=== PATIENT | female | born 1960 | race Caucasian/White ===

== ENCOUNTER 2017-07-15 17:12 | Inpatient (IN) | payer MEDICARE, MEDICAID ==
[~2017-07-15] VITALS: Ht 152.4 cm; Wt 46.4 kg
[~2017-07-15 17:12] MED LIST: HYDR200T PO; LEVO200I5 PO
[2017-07-15 18:57] LABS: Basophils # (auto) 0 uL; Eosinophils # (auto) 0.1 uL; Mean Corpuscular Hgb Conc. 33.8 g/dL (32.0-36.0); Nucleated Red Blood Cells % 0.1 %; Red Cell Distribution Width 13.5 % (11.8-14.3)
[2017-07-15 18:59] LABS: Basophils % (auto) 0.5 % (0.0-2.0); Eosinophils % (auto) 1.3 % (0.0-7.0); Hematocrit 36.2 % (36.0-46.0); Hemoglobin 12.2 g/dL (12.2-16.2); Lymphocytes # (auto) 1.4 uL; Lymphocytes % (auto) 17.4 % (10.0-50.0); Mean Corpuscular Hemoglobin 34.2 pg (28.0-32.0); Mean Corpuscular Volume 101.1 fL (80.0-100.0); Monocytes # (auto) 1.1 uL; Monocytes % (auto) 13.8 % (0.0-12.0); Neutrophils # (auto) 5.3 uL; Platelet Count (auto) 316 10^3/uL (140-450); Red Blood Cells 3.58 10^6/uL (4.0-5.20); White Blood Cell 7.8 10^3/uL (4.4-10.8)
[2017-07-15 19:13] LABS: Chloride 94 mmol/L (98-107); Potassium 4.4 mmol/L (3.5-5.1); Sodium 128 mmol/L (136-145)
[2017-07-15 19:17] LABS: Alanine Aminotransferase 22 U/L (13-56); Albumin 3.5 g/dL (3.4-5.0); Anion Gap 10 (5-15); Aspartate Aminotransferase 28 U/L (15-37); BUN/Creatinine Ratio 17.7; Blood Urea Nitrogen 41 mg/dL (7-18); Calcium 9.2 mg/dL (8.5-10.1); Carbon Dioxide 24 mmol/L (21-32); GFR African American 28 mL/min; GFR Non-African American 23 mL/min; Glucose 88 mg/dL (74-106)
[2017-07-15 19:23] LABS: Alkaline Phosphatase 90 U/L (45-117); Bilirubin, Total 0.5 mg/dL (0.2-1.0); Total Protein 7.9 g/dL (6.4-8.2)
[2017-07-16] MEDS ORDERED: FAMOTIDINE (10MG/ML) 2ML VL IV ONE (02:15)
[2017-07-16] MEDS ORDERED: SODIUM CHLORIDE 0.9% 1,000 ML IV ONE ×2 (02:15→12:45)
[2017-07-16 02:34] LABS: Basophils # (auto) 0.1 uL; Basophils % (auto) 2.4 % (0.0-2.0); Eosinophils # (auto) 0.1 uL; Eosinophils % (auto) 2.4 % (0.0-7.0); Hematocrit 39.6 % (36.0-46.0); Hemoglobin 13.1 g/dL (12.2-16.2); Lymphocytes # (auto) 1.3 uL; Lymphocytes % (auto) 22.7 % (10.0-50.0); Mean Corpuscular Hemoglobin 32.7 pg (28.0-32.0); Mean Corpuscular Volume 99.2 fL (80.0-100.0); Monocytes # (auto) 0.6 uL; Monocytes % (auto) 10.3 % (0.0-12.0); Neutrophils # (auto) 3.5 uL; Neutrophils % (auto) 62.2 % (37.0-80.0); Platelet Count (auto) 259 10^3/uL (140-450); Red Blood Cells 3.99 10^6/uL (4.0-5.20); Red Cell Distribution Width 13.7 % (11.8-14.3); White Blood Cell 5.6 10^3/uL (4.4-10.8)
[2017-07-16 02:48] LABS: Partial Thromboplastin Time 27.1 sec (23.78-33.04); Prothrombin Time 10.7 sec (9.27-12.13)
[2017-07-16 02:49] LABS: Amylase 70 U/L (25-115); Lipase 158 U/L (73-393)
[2017-07-16 03:55] LABS: Urine Bacteria FEW /hpf (None Seen); Urine Blood Negative /uL (Negative); Urine Hyaline Cast MANY /lpf (0 - 2); Urine Specific Gravity 1.014 (1.001-1.035); Urine WBC 2 /hpf (0 - 5)
[2017-07-16] MEDS ORDERED: ALLOPURINOL 300 MG TAB PO ONE (05:15)
[2017-07-16] MEDS ORDERED: KETOROLAC TROMETH 30 MG/ML 1ML VIAL IV ONE (05:15)
[2017-07-16] MEDS ORDERED: COLCHICINE 0.6 MG TAB PO ONE (05:15)
[2017-07-16] MEDS ORDERED: ACETAMINOPHEN 500 MG TAB PO PRN (06:00)
[2017-07-16] MEDS ORDERED: HYDROcodone-ACET 5/325MG TAB PO PRN (06:00)
[2017-07-16] MEDS ORDERED: ONDANSETRON HCL 4 MG/2 ML VIAL IV PRN (06:00)
[2017-07-16] MEDS ORDERED: MORPHINE SULFATE 8mg/ml INJ SDV IV PRN (06:00)
[2017-07-16] MEDS: cefTRIAXone 1GM/10ml IVPUSH 10 ML IV SCH (09:28)
[2017-07-16] MEDS: ALLOPURINOL 100 MG TAB PO SCH (10:00)
[2017-07-16] MEDS: CARVEDILOL 3.125 MG TAB PO SCH ×2 (10:00→22:00)
[2017-07-16] MEDS: SODIUM CHLORIDE 0.9% 1,000 ML IV SCH ×2 (12:27→19:45)
[2017-07-16 13:08] VITALS: BP 79/56
[2017-07-16] MEDS ORDERED: LEFL20TA PO (15:46)
[2017-07-16] MEDS ORDERED: FURO40TA4 PO (15:46)
[2017-07-16] MEDS ORDERED: POTA10TA51 PO (15:46)
[2017-07-16] MEDS ORDERED: SPIR25TA89 PO (15:46)
[2017-07-16] MEDS ORDERED: ADAL20KI SC (15:46)
[2017-07-16] MEDS ORDERED: LISI-275 PO (15:46)
[2017-07-16] MEDS ORDERED: CAR3125T PO (15:46)
[2017-07-16] MEDS ORDERED: FOLI1TAB6 PO (15:46)
[2017-07-16] MEDS: ALBUMIN 25% 100 ML IV SCH ×2 (16:36→22:57)
[2017-07-16 17:00] VITALS: BP_SYST 71; BP_SYST 98; BP_DIAS 48; BP_DIAS 58
[2017-07-16] MEDS ORDERED: TEMAZEPAM 15 MG CAP PO PRN (21:00)
[2017-07-16 21:56] VITALS: BP 93/58
[2017-07-17] MEDS: SODIUM CHLORIDE 0.9% 1,000 ML IV SCH ×2 (03:45→10:35)
[2017-07-17 04:49] VITALS: BP 99/62
[2017-07-17 06:04] LABS: Basophils # (auto) 0 uL; Eosinophils # (auto) 0.1 uL; Lymphocytes # (auto) 1.2 uL; Monocytes # (auto) 0.4 uL; Neutrophils # (auto) 1.9 uL; Nucleated Red Blood Cells % 0.1 %; Red Cell Distribution Width 13.9 % (11.8-14.3); White Blood Cell 3.6 10^3/uL (4.4-10.8)
[2017-07-17 06:07] LABS: Basophils % (auto) 0.5 % (0.0-2.0); Hematocrit 29.5 % (36.0-46.0); Hemoglobin 9.9 g/dL (12.2-16.2); Mean Corpuscular Hemoglobin 34.1 pg (28.0-32.0); Mean Corpuscular Hgb Conc. 33.6 g/dL (32.0-36.0); Mean Corpuscular Volume 101.5 fL (80.0-100.0); Monocytes % (auto) 10.4 % (0.0-12.0); Neutrophils % (auto) 53.1 % (37.0-80.0); Platelet Count (auto) 202 10^3/uL (140-450); Red Blood Cells 2.91 10^6/uL (4.0-5.20)
[2017-07-17] MEDS: ALBUMIN 25% 100 ML IV SCH (06:07)
[2017-07-17 06:34] LABS: Potassium 4.2 mmol/L (3.5-5.1)
[2017-07-17 06:46] LABS: BUN/Creatinine Ratio 24.2
[2017-07-17 09:40] VITALS: BP 94/61
[2017-07-17] MEDS: CARVEDILOL 3.125 MG TAB PO SCH (10:00)
[2017-07-17] MEDS: ALLOPURINOL 100 MG TAB PO SCH (10:33)
[2017-07-17] MEDS: cefTRIAXone 1GM/10ml IVPUSH 10 ML IV SCH (10:33)
[2017-07-17 13:23] VITALS: BP 106/71
[2017-07-17 14:40] VITALS: BP 106/71
[2017-07-17 16:08] VITALS: BP 106/71
[2017-07-17 17:05] VITALS: BP 92/67
== END 2017-07-17 17:23 | disposition home or self-care (01) | DRG 683 ==
LOC: ER 17:12 → TELE 17:13 → TELE-WESTW 07-16 11:43
PROVIDERS: ADMIT Nurse Practitioner Family; ATTEND Internal Medicine
DX: N17.0 Acute kidney failure with tubular necrosis (principal); E87.1 Hypo-osmolality and hyponatremia; I11.0 Hypertensive heart disease with heart failure; I50.9 Heart failure, unspecified; E03.9 Hypothyroidism, unspecified; Z96.0 Presence of urogenital implants; M10.9 Gout, unspecified; I25.10 Atherosclerotic heart disease of native coronary artery without angina pectoris; M06.9 Rheumatoid arthritis, unspecified; Z82.3 Family history of stroke; Z82.49 Family history of ischemic heart disease and other diseases of the circulatory system; Z83.3 Family history of diabetes mellitus; Z90.49 Acquired absence of other specified parts of digestive tract
CPT/HCPCS: 36415; 71045; 74176; 76775; 80048; 80053; 81001; 82150; 83690; 83735; 83880; 84443; 84484; 84550; 85025; 85610; 85652; 85730; 87086; 93005; 96361; 96374; 96375; J1885; J3490; P9047

== ENCOUNTER 2017-09-21 18:58 | Inpatient (IN) | payer MEDICARE, MEDICAID ==
[~2017-09-21] VITALS: Ht 152.4 cm; Wt 44.4 kg
[~2017-09-21 18:58] MED LIST changes: +ADAL20KI SC; +CAR3125T PO; +FOLI1TAB6 PO; +FURO40TA4 PO; -HYDR200T PO; +LEFL20TA PO; +LISI-275 PO; +POTA10TA51 PO; +SPIR25TA89 PO
[2017-09-21] MEDS ORDERED: ACETAMINOPHEN 325 MG TAB PO ONE (19:15)
[2017-09-21 19:49] LABS: Basophils # (auto) 0 uL; Basophils % (auto) 0.2 % (0.0-2.0); Eosinophils # (auto) 0 uL; Hematocrit 34.6 % (36.0-46.0); Hemoglobin 11.6 g/dL (12.2-16.2); Lymphocytes # (auto) 0.5 uL; Lymphocytes % (auto) 3.2 % (10.0-50.0); Mean Corpuscular Hemoglobin 31.4 pg (28.0-32.0); Mean Corpuscular Hgb Conc. 33.6 g/dL (32.0-36.0); Mean Corpuscular Volume 93.6 fL (80.0-100.0); Monocytes # (auto) 0.9 uL; Monocytes % (auto) 6.1 % (0.0-12.0); Neutrophils # (auto) 13.1 uL; Neutrophils % (auto) 90.5 % (37.0-80.0); Platelet Count (auto) 318 10^3/uL (140-450); Red Blood Cells 3.69 10^6/uL (4.0-5.20); Red Cell Distribution Width 14.6 % (11.8-14.3); White Blood Cell 14.5 10^3/uL (4.4-10.8)
[2017-09-21] MEDS ORDERED: SODIUM CHLORIDE 0.9% 1,000 ML IVB ONE (19:56)
[2017-09-21 19:57] LABS: Alanine Aminotransferase 12 U/L (13-56); Albumin 2.4 g/dL (3.4-5.0); Anion Gap 12 (5-15); Aspartate Aminotransferase 14 U/L (15-37); BUN/Creatinine Ratio 14.5; Blood Urea Nitrogen 9 mg/dL (7-18); Calcium 7.6 mg/dL (8.5-10.1); Carbon Dioxide 24 mmol/L (21-32); Chloride 91 mmol/L (98-107); GFR African American 128 mL/min; GFR Non-African American 105 mL/min; Glucose 95 mg/dL (74-106); Potassium 3.7 mmol/L (3.5-5.1); Sodium 127 mmol/L (136-145)
[2017-09-21] MEDS ORDERED: ONDANSETRON HCL 4 MG/2 ML VIAL IV ONE ×2 (20:00→22:45)
[2017-09-21] MEDS ORDERED: MORPHINE SULF INJ 2 MG/ML SYRINGE 1ML IV ONE ×2 (20:00→22:45)
[2017-09-21 20:02] LABS: Alkaline Phosphatase 79 U/L (45-117); Bilirubin, Total 0.8 mg/dL (0.2-1.0); Total Protein 6.3 g/dL (6.4-8.2)
[2017-09-21 20:17] LABS: INR 1.34 (0.9-1.15); Partial Thromboplastin Time 30.1 sec (23.78-33.04); Prothrombin Time 14.1 sec (9.27-12.13)
[2017-09-21] MEDS ORDERED: metroNIDAZOLE 500MG/100ML 100 ML IV ONE (21:45)
[2017-09-21] MEDS ORDERED: cefTRIAXone 1GM/10ml IVPUSH 10 ML IV ONE (21:45)
[2017-09-21] MEDS ORDERED: SODIUM CHLORIDE 0.9% 1,000 ML IV ONE (21:45)
[2017-09-21] MEDS ORDERED: HYDROcodone-ACET 5/325MG TAB PO PRN (23:00)
[2017-09-21] MEDS ORDERED: TEMAZEPAM 15 MG CAP PO PRN (23:00)
[2017-09-21] MEDS ORDERED: NITROGLYCERIN 0.4 MG SL TAB SL PRN (23:00)
[2017-09-21] MEDS ORDERED: ACETAMINOPHEN 325 MG TAB PO PRN (23:00)
[2017-09-21] MEDS ORDERED: SODIUM CHLORIDE 0.9% 1,000 ML IV SCH (23:00)
[2017-09-21 23:03] LABS: Urine Amorphous Crystal FEW /hpf (None Seen); Urine Bacteria NONE SEEN /hpf (None Seen); Urine Blood Negative /uL (Negative); Urine Hyaline Cast MOD /lpf (0 - 2); Urine Mucus FEW (None Seen); Urine Specific Gravity 1.015 (1.001-1.035); Urine WBC 4 /hpf (0 - 5)
[2017-09-22] VITALS (56 sets, daily range): BP systolic 74–116; BP diastolic 35–73
[2017-09-22] MEDS: metroNIDAZOLE 500MG/100ML 100 ML IV SCH ×2 (01:00→05:45)
[2017-09-22] MEDS ORDERED: ALBUMIN 5% 250 ML IV ONE ×2 (01:45→08:00)
[2017-09-22] MEDS: PIPERACILLIN-TAZOB 3.375GM 100 ML IV SCH ×5 (02:20→23:43)
[2017-09-22] MEDS: MORPHINE SULF INJ 2 MG/ML SYRINGE 1ML IV PRN ×2 (05:45→19:35)
[2017-09-22 07:09] LABS: Basophils # (auto) 0 uL; Basophils % (auto) 0.2 % (0.0-2.0); Eosinophils # (auto) 0 uL; Eosinophils % (auto) 0.1 % (0.0-7.0); Hematocrit 29.6 % (36.0-46.0); Hemoglobin 9.8 g/dL (12.2-16.2); Lymphocytes # (auto) 0.7 uL; Mean Corpuscular Hemoglobin 31.6 pg (28.0-32.0); Mean Corpuscular Hgb Conc. 33.1 g/dL (32.0-36.0); Mean Corpuscular Volume 95.6 fL (80.0-100.0); Monocytes # (auto) 0.7 uL; Monocytes % (auto) 6.1 % (0.0-12.0); Neutrophils # (auto) 9.8 uL; Neutrophils % (auto) 87.6 % (37.0-80.0); Platelet Count (auto) 237 10^3/uL (140-450); Red Cell Distribution Width 14.1 % (11.8-14.3); White Blood Cell 11.2 10^3/uL (4.4-10.8)
[2017-09-22 07:25] LABS: Albumin 2.4 g/dL (3.4-5.0); Bilirubin, Total 0.5 mg/dL (0.2-1.0); Calcium 7.2 mg/dL (8.5-10.1); Potassium 3.7 mmol/L (3.5-5.1); Total Protein 5.6 g/dL (6.4-8.2)
[2017-09-22] MEDS: PANTOPRAZOLE 40 MG/10 ML VIAL IV SCH (07:41)
[2017-09-22] MEDS ORDERED: KETOROLAC TROMETH 30 MG/ML 1ML VIAL IV ONE (08:00)
[2017-09-22] MEDS: ONDANSETRON HCL 4 MG/2 ML VIAL IV PRN ×2 (08:48→18:06)
[2017-09-22] MEDS ORDERED: GASTROGRAFIN 30 ML SOL ONE ×2 (09:44→10:13)
[2017-09-22] MEDS ORDERED: LIDOCAINE 2% (LOCAL ANESTH.) PF 5ml SDV ONE (09:49)
[2017-09-22] MEDS ORDERED: fentaNYL CITRATE 100 MCG/2 ML VL ONE (09:54)
[2017-09-22] MEDS ORDERED: MIDAZOLAM HCL 1MG/1ML-2 ML VIAL ONE (09:54)
[2017-09-22] MEDS ORDERED: FURO20TA PO (10:04)
[2017-09-22] MEDS ORDERED: ASPI81CH43 PO (10:04)
[2017-09-22] MEDS ORDERED: ADAL40KI SC (10:04)
[2017-09-22] MEDS ORDERED: LISI-275 PO (10:04)
[2017-09-22] MEDS: ALBUMIN 25% 50 ML IV SCH ×3 (11:48→23:42)
[2017-09-22] MEDS: D5W/SOD CHLO 0.9% 1,000 ML IV SCH ×2 (12:04→22:24)
[2017-09-22] MEDS ORDERED: LIDOCAINE 1% (LOCAL ANESTH.) PF 5ml SDV ID ONE (16:00)
[2017-09-22] MEDS: NOREPINEPHRINE 8 MG/250ML KIT 250 ML IV SCH (18:00)
[2017-09-22] MEDS: LORazepam 2MG/ML-1ML VIAL IV PRN (21:42)
[2017-09-22] MEDS: SODIUM CHLOR 0.9% PF (SALINE LOCK) 10ML VIAL/SYR IV SCH (22:24)
[2017-09-23] VITALS (90 sets, daily range): BP systolic 90–133; BP diastolic 47–109
[2017-09-23] MEDS ORDERED: ALBUMIN 5% 250 ML IV ONE (01:00)
[2017-09-23 03:57] LABS: Basophils # (auto) 0 uL; Basophils % (auto) 0.4 % (0.0-2.0); Eosinophils # (auto) 0.1 uL; Eosinophils % (auto) 0.6 % (0.0-7.0); Hemoglobin 9.3 g/dL (12.2-16.2); Lymphocytes # (auto) 0.9 uL; Lymphocytes % (auto) 7.7 % (10.0-50.0); Mean Corpuscular Hemoglobin 31.8 pg (28.0-32.0); Mean Corpuscular Hgb Conc. 33.4 g/dL (32.0-36.0); Mean Corpuscular Volume 95.1 fL (80.0-100.0); Monocytes # (auto) 0.6 uL; Monocytes % (auto) 4.9 % (0.0-12.0); Neutrophils # (auto) 9.8 uL; Neutrophils % (auto) 86.4 % (37.0-80.0); Platelet Count (auto) 269 10^3/uL (140-450); Red Blood Cells 2.94 10^6/uL (4.0-5.20); Red Cell Distribution Width 14.4 % (11.8-14.3); White Blood Cell 11.3 10^3/uL (4.4-10.8)
[2017-09-23 04:12] LABS: Calcium 7.2 mg/dL (8.5-10.1)
[2017-09-23 04:29] LABS: Potassium 2.9 mmol/L (3.5-5.1)
[2017-09-23] MEDS: POTASSIUM CHL 20MEQ/100ML 100 ML IV SCH ×3 (05:44→09:06)
[2017-09-23] MEDS: PIPERACILLIN-TAZOB 3.375GM 100 ML IV SCH ×3 (05:44→18:01)
[2017-09-23] MEDS: ALBUMIN 25% 50 ML IV SCH (05:45)
[2017-09-23] MEDS: D5W/SOD CHLO 0.9% 1,000 ML IV SCH ×3 (05:56→18:01)
[2017-09-23] MEDS ORDERED: POVIDONE IODINE 10 % TOPICAL OINT 30GM TOP ONE (07:12)
[2017-09-23] MEDS: PANTOPRAZOLE 40 MG/10 ML VIAL IV SCH (07:34)
[2017-09-23] MEDS ORDERED: SUCCINYLCHOLINE CHLORIDE 20 MG/ML 10ML VIAL IV ONE (09:34)
[2017-09-23] MEDS ORDERED: fentaNYL CITRATE 5 ML ONE (09:41)
[2017-09-23] MEDS ORDERED: ROCURONIUM 10MG/ML 10ML VIAL IV ONE ×2 (09:41→13:50)
[2017-09-23] MEDS ORDERED: MIDAZOLAM HCL 1MG/1ML-2 ML VIAL ONE ×5 (09:41→15:31)
[2017-09-23] MEDS ORDERED: PROPOFOL 10 MG/ML 20 ML IV ONE ×2 (09:50→13:53)
[2017-09-23] MEDS: SODIUM CHLOR 0.9% PF (SALINE LOCK) 10ML VIAL/SYR IV SCH ×2 (10:06→22:06)
[2017-09-23] MEDS ORDERED: fentaNYL CITRATE 100 MCG/2 ML VL ONE (13:50)
[2017-09-23] MEDS ORDERED: MORPHINE SULFATE INJECTION 1 ML ONE (15:32)
[2017-09-23] MEDS: MIDAZOLAM DRIP 50 mg/50mL 50 ML IV SCH ×2 (16:47→22:06)
[2017-09-23] MEDS: NOREPINEPHRINE 8 MG/250ML KIT 250 ML IV SCH (18:23)
[2017-09-23 21:11] LABS: Hematocrit 31.8 % (36.0-46.0); Hemoglobin 10.4 g/dL (12.2-16.2)
[2017-09-24] VITALS (105 sets, daily range): BP systolic 86–122; BP diastolic 57–84
[2017-09-24] MEDS: D5W/SOD CHLO 0.9% 1,000 ML IV SCH (03:04)
[2017-09-24] MEDS: MIDAZOLAM DRIP 50 mg/50mL 50 ML IV SCH ×2 (03:04→21:00)
[2017-09-24 03:41] LABS: Basophils # (auto) 0.1 uL; Basophils % (auto) 0.6 % (0.0-2.0); Eosinophils # (auto) 0 uL; Eosinophils % (auto) 0.3 % (0.0-7.0); Hemoglobin 9.7 g/dL (12.2-16.2); Lymphocytes # (auto) 0.8 uL; Lymphocytes % (auto) 6.6 % (10.0-50.0); Mean Corpuscular Hemoglobin 30.8 pg (28.0-32.0); Mean Corpuscular Hgb Conc. 32.4 g/dL (32.0-36.0); Monocytes # (auto) 0.5 uL; Monocytes % (auto) 3.9 % (0.0-12.0); Neutrophils # (auto) 10.7 uL; Neutrophils % (auto) 88.6 % (37.0-80.0); Platelet Count (auto) 323 10^3/uL (140-450); Red Blood Cells 3.15 10^6/uL (4.0-5.20); Red Cell Distribution Width 14.6 % (11.8-14.3); White Blood Cell 12.1 10^3/uL (4.4-10.8)
[2017-09-24 03:52] LABS: Calcium 6.9 mg/dL (8.5-10.1); Magnesium 1.9 mg/dL (1.6-2.6); Potassium 3.4 mmol/L (3.5-5.1)
[2017-09-24] MEDS: PIPERACILLIN-TAZOB 3.375GM 100 ML IV SCH ×5 (06:00→23:46)
[2017-09-24] MEDS ORDERED: D5W/SOD CHLO 0.9% 1,000 ML IV SCH (07:30)
[2017-09-24] MEDS ORDERED: FUROSEMIDE 40 MG/4 ML VIAL IV ONE (07:30)
[2017-09-24] MEDS ORDERED: POTASSIUM PHOSPHATE 44 MEQ in D5W 5% 250 ML IV ONE (07:45)
[2017-09-24] MEDS ORDERED: VANCOMYCIN PER PHARMACY 0 MG IV SCH (08:15)
[2017-09-24] MEDS: PANTOPRAZOLE 40 MG/10 ML VIAL IV SCH (08:30)
[2017-09-24] MEDS: VANCOMYCIN 750 MG in D5W 5% 250 ML IV SCH ×2 (08:30→21:00)
[2017-09-24] MEDS ORDERED: SODIUM CHLORIDE 0.9% 1,000 ML IV ONE (09:00)
[2017-09-24] MEDS: fentaNYL Drip 2500mCg/250mlNS 250 ML IV SCH (09:01)
[2017-09-24] MEDS: D5W/ SOD CHL 0.9%/KCL 20MEQ 1,000 ML IV SCH ×3 (09:59→21:00)
[2017-09-24] MEDS ORDERED: VANCOMYCIN 1GM/250ML 250 ML IV SCH (10:00)
[2017-09-24] MEDS: SODIUM CHLOR 0.9% PF (SALINE LOCK) 10ML VIAL/SYR IV SCH ×2 (10:00→22:00)
[2017-09-24] MEDS: ALBUMIN 25% 100 ML IV SCH ×3 (13:13→23:45)
[2017-09-24] MEDS: NOREPINEPHRINE 8 MG/250ML KIT 250 ML IV SCH (16:43)
[2017-09-25] VITALS (105 sets, daily range): BP systolic 88–119; BP diastolic 59–88
[2017-09-25] MEDS: MIDAZOLAM DRIP 50 mg/50mL 50 ML IV SCH ×2 (01:00→06:07)
[2017-09-25 03:57] LABS: Basophils # (auto) 0 uL; Eosinophils # (auto) 0.2 uL; Eosinophils % (auto) 2.3 % (0.0-7.0); Hemoglobin 8.2 g/dL (12.2-16.2); Monocytes # (auto) 0.5 uL
[2017-09-25 04:17] LABS: Basophils % (auto) 0.5 % (0.0-2.0); Lymphocytes # (auto) 1.3 uL; Lymphocytes % (auto) 19.6 % (10.0-50.0); Mean Corpuscular Hemoglobin 31.5 pg (28.0-32.0); Mean Corpuscular Hgb Conc. 32.8 g/dL (32.0-36.0); Monocytes % (auto) 7.8 % (0.0-12.0); Neutrophils # (auto) 4.7 uL; Neutrophils % (auto) 69.8 % (37.0-80.0); Platelet Count (auto) 307 10^3/uL (140-450); Red Cell Distribution Width 14.7 % (11.8-14.3); White Blood Cell 6.7 10^3/uL (4.4-10.8)
[2017-09-25 04:18] LABS: BUN/Creatinine Ratio 4.8; Calcium 7.1 mg/dL (8.5-10.1); Potassium 3.8 mmol/L (3.5-5.1)
[2017-09-25 04:23] LABS: Magnesium 1.7 mg/dL (1.6-2.6); Phosphorus 2.7 mg/dL (2.5-4.90)
[2017-09-25] MEDS: NOREPINEPHRINE 8 MG/250ML KIT 250 ML IV SCH (05:07)
[2017-09-25] MEDS: D5W/ SOD CHL 0.9%/KCL 20MEQ 1,000 ML IV SCH ×3 (05:07→22:30)
[2017-09-25] MEDS: ALBUMIN 25% 100 ML IV SCH ×3 (06:06→17:41)
[2017-09-25] MEDS: PIPERACILLIN-TAZOB 3.375GM 100 ML IV SCH ×3 (06:06→17:41)
[2017-09-25] MEDS: MAGNESIUM SULFATE 1GM/100ML 100 ML IV SCH ×2 (07:00→08:00)
[2017-09-25] MEDS: PANTOPRAZOLE 40 MG/10 ML VIAL IV SCH (07:55)
[2017-09-25] MEDS: fentaNYL Drip 2500mCg/250mlNS 250 ML IV SCH (08:49)
[2017-09-25] MEDS: VANCOMYCIN 750 MG in D5W 5% 250 ML IV SCH (09:00)
[2017-09-25] MEDS: SODIUM CHLOR 0.9% PF (SALINE LOCK) 10ML VIAL/SYR IV SCH ×2 (10:29→22:12)
[2017-09-25] MEDS ORDERED: TPN PER PHARMACY 0 ML IV SCH (22:00)
[2017-09-25] MEDS: VANCOMYCIN 1GM/250ML 250 ML IV SCH (22:12)
[2017-09-25] MEDS ORDERED: DEXTROSE (50%) 50ML SYRG IV SCH (22:15)
[2017-09-25] MEDS ORDERED: AMINO ACID INFUSION IN D10W 1,000 ML IV NR (22:30)
[2017-09-26] VITALS (104 sets, daily range): BP systolic 75–166; BP diastolic 42–108
[2017-09-26] MEDS: ACCU-CHEK COMFORT CURVE STRIP VI SCH ×5 (00:21→23:33)
[2017-09-26] MEDS: PIPERACILLIN-TAZOB 3.375GM 100 ML IV SCH ×5 (00:21→23:33)
[2017-09-26] MEDS: InsuLIN REG 1unit/0.01ml Soln (100units/ml) SC SCH ×5 (00:45→23:43)
[2017-09-26] MEDS: fentaNYL Drip 2500mCg/250mlNS 250 ML IV SCH (03:38)
[2017-09-26 04:13] LABS: Basophils # (auto) 0 uL; Eosinophils # (auto) 0.1 uL; Hemoglobin 8.4 g/dL (12.2-16.2); Lymphocytes # (auto) 1.1 uL; White Blood Cell 7.7 10^3/uL (4.4-10.8)
[2017-09-26 04:17] LABS: Basophils % (auto) 0.5 % (0.0-2.0); Eosinophils % (auto) 1.7 % (0.0-7.0); Hematocrit 26.2 % (36.0-46.0); Lymphocytes % (auto) 14.8 % (10.0-50.0); Mean Corpuscular Hemoglobin 30.7 pg (28.0-32.0); Mean Corpuscular Hgb Conc. 31.9 g/dL (32.0-36.0); Mean Corpuscular Volume 96.2 fL (80.0-100.0); Monocytes # (auto) 0.5 uL; Nucleated Red Blood Cells % 0.1 %; Platelet Count (auto) 348 10^3/uL (140-450); Red Blood Cells 2.73 10^6/uL (4.0-5.20); Red Cell Distribution Width 14.8 % (11.8-14.3)
[2017-09-26 04:29] LABS: Albumin 3.5 g/dL (3.4-5.0); BUN/Creatinine Ratio 5.2; Bilirubin, Total 0.8 mg/dL (0.2-1.0); Calcium 7.5 mg/dL (8.5-10.1); Magnesium 2.7 mg/dL (1.6-2.6); Phosphorus 2.1 mg/dL (2.5-4.90); Potassium 4.2 mmol/L (3.5-5.1); Pre Albumin 8.3 mg/dL (20.0-40.0); Total Protein 5.6 g/dL (6.4-8.2)
[2017-09-26] MEDS ORDERED: SODIUM PHOSPHATES 20 MEQ in SODIUM CHL 0.9% 100 ML IV ONE (07:15)
[2017-09-26] MEDS: PANTOPRAZOLE 40 MG/10 ML VIAL IV SCH (08:57)
[2017-09-26] MEDS: VANCOMYCIN 1GM/250ML 250 ML IV SCH ×2 (09:54→21:26)
[2017-09-26] MEDS: SODIUM CHLOR 0.9% PF (SALINE LOCK) 10ML VIAL/SYR IV SCH ×2 (09:54→22:10)
[2017-09-26] MEDS: D5W/ SOD CHL 0.9%/KCL 20MEQ 1,000 ML IV SCH (10:16)
[2017-09-26] MEDS ORDERED: CALCIUM GLUC 4.65meq/50ml D5AE 50 ML IV ONE (10:30)
[2017-09-26] MEDS ORDERED: PROPOFOL 100 ML IV ONE (12:41)
[2017-09-26] MEDS: PROPOFOL 100 ML IV SCH (14:04)
[2017-09-26] MEDS: MIDAZOLAM DRIP 50 mg/50mL 50 ML IV SCH (16:14)
[2017-09-26] MEDS: NOREPINEPHRINE 8 MG/250ML KIT 250 ML IV SCH (18:23)
[2017-09-26] MEDS ORDERED: TPN PER PHARMACY IV NR ×8 (20:00)
[2017-09-26] MEDS ORDERED: D5W/ SOD CHL 0.9%/KCL 20MEQ 1,000 ML IV SCH (20:00)
[2017-09-27] VITALS (105 sets, daily range): BP systolic 113–158; BP diastolic 46–97
[2017-09-27 04:32] LABS: Basophils # (auto) 0 uL; Eosinophils # (auto) 0 uL; Eosinophils % (auto) 0.2 % (0.0-7.0); Hemoglobin 7.9 g/dL (12.2-16.2); Lymphocytes # (auto) 1.1 uL; Monocytes # (auto) 0.3 uL; Nucleated Red Blood Cells % 0.1 %; White Blood Cell 6.4 10^3/uL (4.4-10.8)
[2017-09-27 04:34] LABS: Basophils % (auto) 0.2 % (0.0-2.0); Hematocrit 24.2 % (36.0-46.0); Lymphocytes % (auto) 17.4 % (10.0-50.0); Mean Corpuscular Hemoglobin 31.1 pg (28.0-32.0); Mean Corpuscular Hgb Conc. 32.5 g/dL (32.0-36.0); Mean Corpuscular Volume 95.6 fL (80.0-100.0); Monocytes % (auto) 5.1 % (0.0-12.0); Neutrophils # (auto) 4.9 uL; Neutrophils % (auto) 77.1 % (37.0-80.0); Platelet Count (auto) 192 10^3/uL (140-450); Red Blood Cells 2.53 10^6/uL (4.0-5.20); Red Cell Distribution Width 14.9 % (11.8-14.3)
[2017-09-27 05:05] LABS: Albumin 2.8 g/dL (3.4-5.0); BUN/Creatinine Ratio 17.6; Bilirubin, Total 0.7 mg/dL (0.2-1.0); Magnesium 2.4 mg/dL (1.6-2.6); Phosphorus 3.1 mg/dL (2.5-4.90); Potassium 3.7 mmol/L (3.5-5.1); Total Protein 4.6 g/dL (6.4-8.2)
[2017-09-27] MEDS: ACCU-CHEK COMFORT CURVE STRIP VI SCH ×4 (05:19→23:30)
[2017-09-27] MEDS: PIPERACILLIN-TAZOB 3.375GM 100 ML IV SCH ×3 (05:19→17:37)
[2017-09-27] MEDS: InsuLIN REG 1unit/0.01ml Soln (100units/ml) SC SCH ×4 (05:20→23:30)
[2017-09-27] MEDS: PANTOPRAZOLE 40 MG/10 ML VIAL IV SCH (07:47)
[2017-09-27] MEDS: VANCOMYCIN 1GM/250ML 250 ML IV SCH (10:00)
[2017-09-27] MEDS: SODIUM CHLOR 0.9% PF (SALINE LOCK) 10ML VIAL/SYR IV SCH ×2 (10:23→22:03)
[2017-09-27] MEDS ORDERED: CALCIUM GLUC 4.65meq/50ml D5AE 50 ML IV ONE (10:45)
[2017-09-27] MEDS ORDERED: FUROSEMIDE 40 MG/4 ML VIAL IV ONE (14:00)
[2017-09-27] MEDS: MIDAZOLAM DRIP 50 mg/50mL 50 ML IV SCH (16:14)
[2017-09-27] MEDS: PROPOFOL 100 ML IV SCH (16:19)
[2017-09-27] MEDS: FUROSEMIDE 40 MG/4 ML VIAL IV SCH (17:37)
[2017-09-27] MEDS: cefTRIAXone 1GM/10ml IVPUSH 10 ML IV SCH (18:21)
[2017-09-27] MEDS ORDERED: PPN PER PHARMACY IV NR ×7 (20:00)
[2017-09-27] MEDS ORDERED: TPN PER PHARMACY IV NR ×7 (20:00)
[2017-09-27] MEDS ORDERED: POTASSIUM CHL 20MEQ/100ML 200 ML IV ONE (21:54)
[2017-09-27] MEDS: POTASSIUM CHL 20MEQ/100ML 100 ML IV SCH ×2 (21:56→23:22)
[2017-09-27] MEDS: VANCOMYCIN 500 MG in D5W 5% 100 ML IV SCH (22:02)
[2017-09-27] MEDS: fentaNYL Drip 2500mCg/250mlNS 250 ML IV SCH (22:09)
[2017-09-27] MEDS: D5W/ SOD CHL 0.9%/KCL 20MEQ 1,000 ML IV SCH (22:09)
[2017-09-27] MEDS: NOREPINEPHRINE 8 MG/250ML KIT 250 ML IV SCH (22:09)
[2017-09-28] VITALS (100 sets, daily range): BP systolic 90–162; BP diastolic 27–91
[2017-09-28 02:33] LABS: Basophils # (auto) 0.1 uL; Basophils % (auto) 0.8 % (0.0-2.0); Eosinophils # (auto) 0.2 uL; Eosinophils % (auto) 2.2 % (0.0-7.0); Hematocrit 30.3 % (36.0-46.0); Hemoglobin 10.1 g/dL (12.2-16.2); Lymphocytes # (auto) 1.2 uL; Lymphocytes % (auto) 12.5 % (10.0-50.0); Mean Corpuscular Hemoglobin 31.3 pg (28.0-32.0); Mean Corpuscular Hgb Conc. 33.2 g/dL (32.0-36.0); Mean Corpuscular Volume 94.2 fL (80.0-100.0); Monocytes # (auto) 0.3 uL; Monocytes % (auto) 3.6 % (0.0-12.0); Neutrophils # (auto) 7.8 uL; Neutrophils % (auto) 80.9 % (37.0-80.0); Nucleated Red Blood Cells % 0.1 %; Platelet Count (auto) 316 10^3/uL (140-450); Red Blood Cells 3.22 10^6/uL (4.0-5.20); White Blood Cell 9.6 10^3/uL (4.4-10.8)
[2017-09-28 03:10] LABS: Albumin 2.8 g/dL (3.4-5.0); BUN/Creatinine Ratio 24.4; Bilirubin, Total 0.7 mg/dL (0.2-1.0); Calcium 7.7 mg/dL (8.5-10.1); Magnesium 1.9 mg/dL (1.6-2.6); Phosphorus 2.5 mg/dL (2.5-4.90); Potassium 3.7 mmol/L (3.5-5.1); Total Protein 5.4 g/dL (6.4-8.2)
[2017-09-28] MEDS: D5W/ SOD CHL 0.9%/KCL 20MEQ 1,000 ML IV SCH (04:00)
[2017-09-28] MEDS: PROPOFOL 100 ML IV SCH (05:20)
[2017-09-28] MEDS: FUROSEMIDE 40 MG/4 ML VIAL IV SCH ×2 (05:20→17:36)
[2017-09-28] MEDS: ACCU-CHEK COMFORT CURVE STRIP VI SCH ×3 (05:20→17:36)
[2017-09-28] MEDS: InsuLIN REG 1unit/0.01ml Soln (100units/ml) SC SCH ×3 (05:22→17:36)
[2017-09-28] MEDS: PANTOPRAZOLE 40 MG/10 ML VIAL IV SCH (07:30)
[2017-09-28] MEDS: cefTRIAXone 1GM/10ml IVPUSH 10 ML IV SCH (09:23)
[2017-09-28] MEDS: VANCOMYCIN 500 MG in D5W 5% 100 ML IV SCH ×2 (09:35→21:22)
[2017-09-28] MEDS: SODIUM CHLOR 0.9% PF (SALINE LOCK) 10ML VIAL/SYR IV SCH ×2 (09:35→21:23)
[2017-09-28] MEDS ORDERED: CALCIUM GLUC 4.65meq/50ml D5AE 50 ML IV ONE (11:00)
[2017-09-28] MEDS: fentaNYL Drip 2500mCg/250mlNS 250 ML IV SCH ×2 (14:01→20:45)
[2017-09-28] MEDS: MIDAZOLAM DRIP 50 mg/50mL 50 ML IV SCH (15:55)
[2017-09-28] MEDS: NOREPINEPHRINE 8 MG/250ML KIT 250 ML IV SCH (17:41)
[2017-09-28] MEDS ORDERED: PPN PER PHARMACY IV NR ×8 (20:00)
[2017-09-29] VITALS (93 sets, daily range): BP systolic 84–131; BP diastolic 43–86
[2017-09-29 03:45] LABS: Basophils # (auto) 0.1 uL; Basophils % (auto) 0.7 % (0.0-2.0); Eosinophils # (auto) 0.2 uL; Hematocrit 32.1 % (36.0-46.0); Hemoglobin 10.7 g/dL (12.2-16.2); Lymphocytes # (auto) 1.3 uL; Lymphocytes % (auto) 15.1 % (10.0-50.0); Mean Corpuscular Hemoglobin 31.1 pg (28.0-32.0); Mean Corpuscular Hgb Conc. 33.3 g/dL (32.0-36.0); Mean Corpuscular Volume 93.5 fL (80.0-100.0); Monocytes # (auto) 0.3 uL; Monocytes % (auto) 3.6 % (0.0-12.0); Neutrophils # (auto) 6.6 uL; Neutrophils % (auto) 78.6 % (37.0-80.0); Nucleated Red Blood Cells % 0.2 %; Platelet Count (auto) 301 10^3/uL (140-450); Red Blood Cells 3.43 10^6/uL (4.0-5.20); Red Cell Distribution Width 15.2 % (11.8-14.3); White Blood Cell 8.4 10^3/uL (4.4-10.8)
[2017-09-29 04:06] LABS: INR 1.28 (0.9-1.15); Prothrombin Time 13.5 sec (9.27-12.13)
[2017-09-29 04:21] LABS: Albumin 2.7 g/dL (3.4-5.0); BUN/Creatinine Ratio 31.9; Bilirubin, Total 0.8 mg/dL (0.2-1.0); Calcium 7.4 mg/dL (8.5-10.1); Magnesium 1.9 mg/dL (1.6-2.6); Phosphorus 4.8 mg/dL (2.5-4.90); Potassium 3.2 mmol/L (3.5-5.1); Total Protein 5.6 g/dL (6.4-8.2)
[2017-09-29] MEDS: InsuLIN REG 1unit/0.01ml Soln (100units/ml) SC SCH ×4 (06:00→18:00)
[2017-09-29] MEDS: FUROSEMIDE 40 MG/4 ML VIAL IV SCH ×2 (06:12→18:06)
[2017-09-29] MEDS: PANTOPRAZOLE 40 MG/10 ML VIAL IV SCH (06:12)
[2017-09-29] MEDS: ACCU-CHEK COMFORT CURVE STRIP VI SCH ×4 (06:17→18:06)
[2017-09-29] MEDS: POTASSIUM CHL 20MEQ/100ML 100 ML IV SCH ×3 (08:00→12:00)
[2017-09-29] MEDS ORDERED: SODIUM ACETATE IV NR ×8 (08:00)
[2017-09-29] MEDS ORDERED: POTASSIUM ACETATE IV NR ×8 (08:00)
[2017-09-29] MEDS ORDERED: SODIUM PHOSPHATES IV NR ×8 (08:00)
[2017-09-29] MEDS ORDERED: [UNRECOGNIZED DRUG - OTHER] IV NR ×8 (08:00)
[2017-09-29] MEDS: cefTRIAXone 1GM/10ml IVPUSH 10 ML IV SCH (09:09)
[2017-09-29] MEDS: DEXMEDETOMIDINE HCL 400 MCG in D5W 5% 96 ML IV SCH (09:38)
[2017-09-29] MEDS: VANCOMYCIN 500 MG in D5W 5% 100 ML IV SCH (10:00)
[2017-09-29] MEDS: ENOXAPARIN SOD 30 MG/0.3 ML SYRINGE SC SCH (10:00)
[2017-09-29] MEDS: SODIUM CHLOR 0.9% PF (SALINE LOCK) 10ML VIAL/SYR IV SCH ×2 (10:00→22:06)
[2017-09-29] MEDS: PROPOFOL 100 ML IV SCH (12:40)
[2017-09-29] MEDS: D5W/ SOD CHL 0.9%/KCL 20MEQ 1,000 ML IV SCH (12:55)
[2017-09-29] MEDS: MIDAZOLAM DRIP 50 mg/50mL 50 ML IV SCH (13:33)
[2017-09-29] MEDS: fentaNYL Drip 2500mCg/250mlNS 250 ML IV SCH (16:47)
[2017-09-29] MEDS: NOREPINEPHRINE 8 MG/250ML KIT 250 ML IV SCH (18:07)
[2017-09-29] MEDS ORDERED: TPN PER PHARMACY IV NR ×7 (20:00)
[2017-09-29] MEDS: VANCOMYCIN 750 MG in D5W 5% 250 ML IV SCH (22:40)
[2017-09-30] VITALS (105 sets, daily range): BP systolic 78–140; BP diastolic 52–88
[2017-09-30] MEDS: ACCU-CHEK COMFORT CURVE STRIP VI SCH ×4 (00:05→17:38)
[2017-09-30] MEDS: InsuLIN REG 1unit/0.01ml Soln (100units/ml) SC SCH ×4 (00:09→17:37)
[2017-09-30] MEDS: NOREPINEPHRINE 8 MG/250ML KIT 250 ML IV SCH (00:45)
[2017-09-30 03:41] LABS: Basophils # (auto) 0.2 uL; Basophils % (auto) 1.5 % (0.0-2.0); Eosinophils # (auto) 0.1 uL; Eosinophils % (auto) 1.3 % (0.0-7.0); Hematocrit 31.9 % (36.0-46.0); Hemoglobin 10.4 g/dL (12.2-16.2); Lymphocytes # (auto) 1.4 uL; Lymphocytes % (auto) 13.3 % (10.0-50.0); Mean Corpuscular Hemoglobin 30.7 pg (28.0-32.0); Mean Corpuscular Hgb Conc. 32.6 g/dL (32.0-36.0); Mean Corpuscular Volume 94.1 fL (80.0-100.0); Monocytes # (auto) 0.4 uL; Monocytes % (auto) 4.1 % (0.0-12.0); Neutrophils # (auto) 8.5 uL; Neutrophils % (auto) 79.8 % (37.0-80.0); Platelet Count (auto) 333 10^3/uL (140-450); Red Blood Cells 3.39 10^6/uL (4.0-5.20); Red Cell Distribution Width 15.2 % (11.8-14.3); White Blood Cell 10.7 10^3/uL (4.4-10.8)
[2017-09-30 04:06] LABS: Albumin 2.9 g/dL (3.4-5.0); BUN/Creatinine Ratio 31.5; Bilirubin, Total 0.9 mg/dL (0.2-1.0); Calcium 7.7 mg/dL (8.5-10.1); Magnesium 2.4 mg/dL (1.6-2.6); Phosphorus 4.4 mg/dL (2.5-4.90); Potassium 3.9 mmol/L (3.5-5.1)
[2017-09-30] MEDS: FUROSEMIDE 40 MG/4 ML VIAL IV SCH ×2 (06:58→17:39)
[2017-09-30] MEDS: PANTOPRAZOLE 40 MG/10 ML VIAL IV SCH (06:59)
[2017-09-30] MEDS: cefTRIAXone 1GM/10ml IVPUSH 10 ML IV SCH (09:25)
[2017-09-30] MEDS: DEXMEDETOMIDINE HCL 400 MCG in D5W 5% 96 ML IV SCH ×2 (09:38→23:31)
[2017-09-30] MEDS: ENOXAPARIN SOD 30 MG/0.3 ML SYRINGE SC SCH (09:42)
[2017-09-30] MEDS: MORPHINE SULF INJ 2 MG/ML SYRINGE 1ML IV PRN (09:42)
[2017-09-30] MEDS: SODIUM CHLOR 0.9% PF (SALINE LOCK) 10ML VIAL/SYR IV SCH ×2 (09:42→22:19)
[2017-09-30] MEDS ORDERED: CALCIUM GLUC 4.65meq/50ml D5AE 50 ML IV ONE (10:45)
[2017-09-30] MEDS: PROPOFOL 100 ML IV SCH (12:40)
[2017-09-30] MEDS: D5W/ SOD CHL 0.9%/KCL 20MEQ 1,000 ML IV SCH ×2 (14:00→20:36)
[2017-09-30] MEDS: MIDAZOLAM DRIP 50 mg/50mL 50 ML IV SCH (16:14)
[2017-09-30] MEDS ORDERED: PPN PER PHARMACY IV NR ×6 (20:00)
[2017-09-30] MEDS: fentaNYL Drip 2500mCg/250mlNS 250 ML IV SCH (20:49)
[2017-09-30] MEDS: VANCOMYCIN 750 MG in D5W 5% 250 ML IV SCH (22:42)
[2017-10-01] VITALS (67 sets, daily range): BP systolic 81–129; BP diastolic 46–96
[2017-10-01] MEDS ORDERED: diphenhdrAMINE HCL 50 MG/1 ML VL IV ONE
[2017-10-01] MEDS ORDERED: diphenhdrAMINE HCL 50 MG/1 ML VL ONE (00:06)
[2017-10-01] MEDS: ACCU-CHEK COMFORT CURVE STRIP VI SCH ×5 (00:16→23:58)
[2017-10-01] MEDS: InsuLIN REG 1unit/0.01ml Soln (100units/ml) SC SCH ×5 (00:20→23:58)
[2017-10-01] MEDS ORDERED: DILTIAZEM HCL 25 MG/5 ML VIAL IV ONE (01:15)
[2017-10-01] MEDS ORDERED: METOPROLOL TARTRATE 1MG/1ML-5ML VIAL IV ONE ×2 (01:24→01:30)
[2017-10-01 03:50] LABS: Basophils # (auto) 0.1 uL; Basophils % (auto) 0.8 % (0.0-2.0); Eosinophils # (auto) 0.1 uL; Eosinophils % (auto) 0.8 % (0.0-7.0); Hematocrit 32.1 % (36.0-46.0); Hemoglobin 10.5 g/dL (12.2-16.2); Lymphocytes # (auto) 1.4 uL; Lymphocytes % (auto) 11.6 % (10.0-50.0); Mean Corpuscular Hemoglobin 30.8 pg (28.0-32.0); Mean Corpuscular Hgb Conc. 32.6 g/dL (32.0-36.0); Mean Corpuscular Volume 94.5 fL (80.0-100.0); Monocytes # (auto) 0.7 uL; Monocytes % (auto) 5.8 % (0.0-12.0); Platelet Count (auto) 304 10^3/uL (140-450); Red Cell Distribution Width 14.7 % (11.8-14.3); White Blood Cell 12.4 10^3/uL (4.4-10.8)
[2017-10-01 03:58] LABS: Potassium 4.4 mmol/L (3.5-5.1)
[2017-10-01 04:02] LABS: Albumin 3.2 g/dL (3.4-5.0); BUN/Creatinine Ratio 30.5; Calcium 8.1 mg/dL (8.5-10.1); Magnesium 2.5 mg/dL (1.6-2.6)
[2017-10-01 04:05] LABS: Bilirubin, Total 0.9 mg/dL (0.2-1.0); Phosphorus 3.4 mg/dL (2.5-4.90); Total Protein 6.6 g/dL (6.4-8.2)
[2017-10-01] MEDS: FUROSEMIDE 40 MG/4 ML VIAL IV SCH ×2 (06:00→17:21)
[2017-10-01] MEDS: PANTOPRAZOLE 40 MG/10 ML VIAL IV SCH (06:33)
[2017-10-01] MEDS: ALBUMIN 25% 50 ML IV SCH ×3 (09:00→23:32)
[2017-10-01] MEDS: SODIUM CHLOR 0.9% PF (SALINE LOCK) 10ML VIAL/SYR IV SCH ×2 (09:59→22:25)
[2017-10-01] MEDS: ENOXAPARIN SOD 30 MG/0.3 ML SYRINGE SC SCH (10:00)
[2017-10-01] MEDS: PIPERACILLIN-TAZOB 3.375GM 100 ML IV SCH ×2 (11:41→17:22)
[2017-10-01] MEDS: PROPOFOL 100 ML IV SCH (11:42)
[2017-10-01] MEDS: MORPHINE SULF INJ 2 MG/ML SYRINGE 1ML IV PRN (11:50)
[2017-10-01] MEDS ORDERED: CALCIUM GLUC 4.65meq/50ml D5AE 50 ML IV ONE (14:00)
[2017-10-01] MEDS ORDERED: IPRATROPIUM BROM 0.5 MG/2.5ML INH SOL NEB PRN (15:30)
[2017-10-01] MEDS ORDERED: ALBUTEROL SULF 2.5 MG/0.5ML(0.5%) NEB SOLN NEB PRN (15:30)
[2017-10-01] MEDS: MIDAZOLAM DRIP 50 mg/50mL 50 ML IV SCH (16:14)
[2017-10-01] MEDS: NOREPINEPHRINE 8 MG/250ML KIT 250 ML IV SCH (17:23)
[2017-10-01] MEDS ORDERED: TPN PER PHARMACY IV NR ×8 (20:00)
[2017-10-01] MEDS: HYDROcodone-ACET 5/325MG TAB PO PRN (22:25)
[2017-10-01] MEDS: D5W/ SOD CHL 0.9%/KCL 20MEQ 1,000 ML IV SCH (23:31)
[2017-10-02] VITALS: BP 103/71
[2017-10-02 01:00] VITALS: BP 108/66
[2017-10-02 02:00] VITALS: BP 108/66
[2017-10-02 03:00] VITALS: BP 101/67
[2017-10-02 04:00] VITALS: BP 94/61
[2017-10-02 05:30] LABS: Basophils # (auto) 0.1 uL; Basophils % (auto) 0.8 % (0.0-2.0); Eosinophils # (auto) 0.2 uL; Eosinophils % (auto) 2.3 % (0.0-7.0); Hematocrit 30.7 % (36.0-46.0); Hemoglobin 10.3 g/dL (12.2-16.2); Lymphocytes # (auto) 1.2 uL; Lymphocytes % (auto) 12.9 % (10.0-50.0); Mean Corpuscular Hemoglobin 31.5 pg (28.0-32.0); Mean Corpuscular Hgb Conc. 33.6 g/dL (32.0-36.0); Mean Corpuscular Volume 93.9 fL (80.0-100.0); Monocytes # (auto) 0.6 uL; Monocytes % (auto) 6.6 % (0.0-12.0); Neutrophils # (auto) 7.3 uL; Neutrophils % (auto) 77.4 % (37.0-80.0); Platelet Count (auto) 270 10^3/uL (140-450); Red Blood Cells 3.27 10^6/uL (4.0-5.20); Red Cell Distribution Width 15.3 % (11.8-14.3); White Blood Cell 9.5 10^3/uL (4.4-10.8)
[2017-10-02 05:47] LABS: Albumin 3.6 g/dL (3.4-5.0); BUN/Creatinine Ratio 27.9; Bilirubin, Total 1.1 mg/dL (0.2-1.0); Calcium 8.2 mg/dL (8.5-10.1); Magnesium 2.5 mg/dL (1.6-2.6); Phosphorus 3.2 mg/dL (2.5-4.90); Total Protein 6.6 g/dL (6.4-8.2)
[2017-10-02] MEDS: InsuLIN REG 1unit/0.01ml Soln (100units/ml) SC SCH (06:00)
[2017-10-02] MEDS: ACCU-CHEK COMFORT CURVE STRIP VI SCH (06:03)
[2017-10-02] MEDS: PIPERACILLIN-TAZOB 3.375GM 100 ML IV SCH ×5 (06:04→23:37)
[2017-10-02] MEDS: PANTOPRAZOLE 40 MG/10 ML VIAL IV SCH (06:37)
[2017-10-02] MEDS: HYDROcodone-ACET 5/325MG TAB PO PRN (06:39)
[2017-10-02] MEDS: FUROSEMIDE 40 MG/4 ML VIAL IV SCH (06:43)
[2017-10-02] MEDS: SODIUM CHLOR 0.9% PF (SALINE LOCK) 10ML VIAL/SYR IV SCH ×2 (09:54→21:55)
[2017-10-02] MEDS: ENOXAPARIN SOD 30 MG/0.3 ML SYRINGE SC SCH (11:00)
[2017-10-02] MEDS ORDERED: Ensure Enlive Chocolate 8oz Bottle PO SCH (18:00)
[2017-10-02] MEDS: ONDANSETRON HCL 4 MG/2 ML VIAL IV PRN (18:01)
[2017-10-02] MEDS: ENSURE CLEAR Apple 8oz Carton PO SCH (18:01)
[2017-10-02] MEDS ORDERED: METOCLOPRAMIDE HCL 10 MG TAB PO ONE (18:30)
[2017-10-02] MEDS: diphenhdrAMINE HCL 25 MG CAP PO PRN (18:35)
[2017-10-02 21:54] VITALS: BP 104/67
[2017-10-02] MEDS: LORazepam 2MG/ML-1ML VIAL IV PRN (21:54)
[2017-10-03 05:00] VITALS: BP 89/67
[2017-10-03] MEDS: PIPERACILLIN-TAZOB 3.375GM 100 ML IV SCH (05:46)
[2017-10-03 06:34] LABS: Potassium 3.3 mmol/L (3.5-5.1)
[2017-10-03] MEDS: PANTOPRAZOLE 40 MG/10 ML VIAL IV SCH (06:37)
[2017-10-03 06:38] LABS: BUN/Creatinine Ratio 22.1; Calcium 8.1 mg/dL (8.5-10.1)
[2017-10-03 07:19] LABS: Basophils # (auto) 0.1 uL; Eosinophils # (auto) 0.2 uL; Eosinophils % (auto) 2.5 % (0.0-7.0); Hematocrit 31.2 % (36.0-46.0); Hemoglobin 10.3 g/dL (12.2-16.2); Lymphocytes # (auto) 0.8 uL; Lymphocytes % (auto) 10.4 % (10.0-50.0); Mean Corpuscular Hemoglobin 31.3 pg (28.0-32.0); Mean Corpuscular Volume 94.9 fL (80.0-100.0); Monocytes # (auto) 0.5 uL; Monocytes % (auto) 6.6 % (0.0-12.0); Neutrophils # (auto) 6.4 uL; Neutrophils % (auto) 79.5 % (37.0-80.0); Platelet Count (auto) 246 10^3/uL (140-450); Red Blood Cells 3.29 10^6/uL (4.0-5.20); Red Cell Distribution Width 15.4 % (11.8-14.3); White Blood Cell 8.1 10^3/uL (4.4-10.8)
[2017-10-03] MEDS ORDERED: POTASSIUM EFFERVESENT TAB 25 MEQ PO ONE (07:45)
[2017-10-03] MEDS ORDERED: SOD CHL 0.9%/ KCL 40MEQ 1,000 ML IV ONE (07:45)
[2017-10-03 09:00] VITALS: BP 102/63
[2017-10-03] MEDS: ENSURE CLEAR Apple 8oz Carton PO SCH ×3 (09:21→18:11)
[2017-10-03] MEDS: SERTRALINE HCL 50 MG TAB PO SCH (10:17)
[2017-10-03] MEDS: ENOXAPARIN SOD 40 MG/0.4 ML SYRINGE SC SCH (10:17)
[2017-10-03] MEDS: SODIUM CHLOR 0.9% PF (SALINE LOCK) 10ML VIAL/SYR IV SCH ×2 (10:17→22:49)
[2017-10-03] MEDS: AMPICILLIN INJ 1 GM in SODIUM CHL 0.9% 50 ML IV SCH ×3 (11:54→23:37)
[2017-10-03 13:00] VITALS: BP 90/58
[2017-10-03] MEDS: HYDROcodone-ACET 5/325MG TAB PO PRN ×2 (14:20→21:15)
[2017-10-03 17:24] VITALS: BP 88/58
[2017-10-03 22:00] VITALS: BP 105/83
[2017-10-03] MEDS: LORazepam 0.5 MG TAB PO PRN (23:38)
[2017-10-04 05:00] VITALS: BP 100/65
[2017-10-04 06:20] LABS: Basophils # (auto) 0.1 uL; Basophils % (auto) 1.4 % (0.0-2.0); Eosinophils # (auto) 0.2 uL; Eosinophils % (auto) 2.5 % (0.0-7.0); Hematocrit 27.5 % (36.0-46.0); Hemoglobin 9.3 g/dL (12.2-16.2); Lymphocytes # (auto) 1.1 uL; Mean Corpuscular Hemoglobin 32.2 pg (28.0-32.0); Mean Corpuscular Volume 94.8 fL (80.0-100.0); Monocytes # (auto) 0.6 uL; Monocytes % (auto) 8.6 % (0.0-12.0); Neutrophils # (auto) 4.7 uL; Neutrophils % (auto) 70.5 % (37.0-80.0); Platelet Count (auto) 235 10^3/uL (140-450); Red Cell Distribution Width 15.5 % (11.8-14.3); White Blood Cell 6.7 10^3/uL (4.4-10.8)
[2017-10-04] MEDS: AMPICILLIN INJ 1 GM in SODIUM CHL 0.9% 50 ML IV SCH ×3 (06:26→18:53)
[2017-10-04] MEDS: diphenhdrAMINE HCL 25 MG CAP PO PRN (06:27)
[2017-10-04] MEDS: HYDROcodone-ACET 5/325MG TAB PO PRN ×4 (06:27→20:47)
[2017-10-04 06:39] LABS: BUN/Creatinine Ratio 16.9; Potassium 3.9 mmol/L (3.5-5.1)
[2017-10-04 09:00] VITALS: BP 97/59
[2017-10-04] MEDS: SERTRALINE HCL 50 MG TAB PO SCH (10:00)
[2017-10-04] MEDS: SODIUM CHLOR 0.9% PF (SALINE LOCK) 10ML VIAL/SYR IV SCH ×2 (10:00→22:02)
[2017-10-04] MEDS: ENSURE CLEAR Apple 8oz Carton PO SCH ×3 (10:00→18:14)
[2017-10-04] MEDS: PANTOPRAZOLE 40 MG/10 ML VIAL IV SCH (10:00)
[2017-10-04] MEDS: ENOXAPARIN SOD 40 MG/0.4 ML SYRINGE SC SCH (10:01)
[2017-10-04 13:00] VITALS: BP 103/73
[2017-10-04 17:00] VITALS: BP 106/79
[2017-10-04] MEDS: LORazepam 0.5 MG TAB PO PRN (20:47)
[2017-10-04 21:44] VITALS: BP 99/71
[2017-10-05] MEDS: AMPICILLIN INJ 1 GM in SODIUM CHL 0.9% 50 ML IV SCH ×4 (00:20→18:09)
[2017-10-05 04:55] VITALS: BP 96/70
[2017-10-05] MEDS: HYDROcodone-ACET 5/325MG TAB PO PRN ×4 (05:17→22:45)
[2017-10-05 07:04] LABS: Basophils # (auto) 0.1 uL; Basophils % (auto) 1.5 % (0.0-2.0); Eosinophils # (auto) 0.2 uL; Eosinophils % (auto) 3.4 % (0.0-7.0); Hematocrit 29.4 % (36.0-46.0); Hemoglobin 9.7 g/dL (12.2-16.2); Lymphocytes # (auto) 1.1 uL; Lymphocytes % (auto) 17.5 % (10.0-50.0); Mean Corpuscular Hemoglobin 31.6 pg (28.0-32.0); Mean Corpuscular Hgb Conc. 32.9 g/dL (32.0-36.0); Mean Corpuscular Volume 95.9 fL (80.0-100.0); Monocytes # (auto) 0.5 uL; Monocytes % (auto) 8.3 % (0.0-12.0); Neutrophils # (auto) 4.5 uL; Neutrophils % (auto) 69.3 % (37.0-80.0); Platelet Count (auto) 243 10^3/uL (140-450); Red Blood Cells 3.07 10^6/uL (4.0-5.20); Red Cell Distribution Width 15.7 % (11.8-14.3); White Blood Cell 6.5 10^3/uL (4.4-10.8)
[2017-10-05 07:14] LABS: BUN/Creatinine Ratio 17.2; Calcium 7.6 mg/dL (8.5-10.1); Potassium 3.6 mmol/L (3.5-5.1)
[2017-10-05] MEDS: ENSURE CLEAR Apple 8oz Carton PO SCH ×3 (08:03→18:09)
[2017-10-05] MEDS: PANTOPRAZOLE 40 MG/10 ML VIAL IV SCH (08:03)
[2017-10-05 08:39] VITALS: BP 98/69
[2017-10-05] MEDS: SODIUM CHLOR 0.9% PF (SALINE LOCK) 10ML VIAL/SYR IV SCH ×2 (09:49→22:34)
[2017-10-05] MEDS: SERTRALINE HCL 50 MG TAB PO SCH (09:49)
[2017-10-05] MEDS: ENOXAPARIN SOD 40 MG/0.4 ML SYRINGE SC SCH (09:49)
[2017-10-05 12:39] VITALS: BP 108/61
[2017-10-05 16:40] VITALS: BP 118/76
[2017-10-05 22:00] VITALS: BP 114/72
[2017-10-05] MEDS: LORazepam 0.5 MG TAB PO PRN (22:44)
[2017-10-06] MEDS: AMPICILLIN INJ 1 GM in SODIUM CHL 0.9% 50 ML IV SCH ×3 (00:12→12:00)
[2017-10-06 05:09] VITALS: BP 101/65
[2017-10-06 06:33] LABS: Basophils # (auto) 0.1 uL; Basophils % (auto) 2.2 % (0.0-2.0); Eosinophils # (auto) 0.3 uL; Eosinophils % (auto) 4.1 % (0.0-7.0); Hematocrit 30.1 % (36.0-46.0); Hemoglobin 9.9 g/dL (12.2-16.2); Lymphocytes # (auto) 1.4 uL; Lymphocytes % (auto) 23.1 % (10.0-50.0); Mean Corpuscular Hemoglobin 32.3 pg (28.0-32.0); Mean Corpuscular Hgb Conc. 33.1 g/dL (32.0-36.0); Mean Corpuscular Volume 97.6 fL (80.0-100.0); Monocytes # (auto) 0.6 uL; Monocytes % (auto) 9.9 % (0.0-12.0); Neutrophils # (auto) 3.7 uL; Neutrophils % (auto) 60.7 % (37.0-80.0); Nucleated Red Blood Cells % 0.1 %; Platelet Count (auto) 245 10^3/uL (140-450); Red Blood Cells 3.08 10^6/uL (4.0-5.20); Red Cell Distribution Width 16.1 % (11.8-14.3); White Blood Cell 6.2 10^3/uL (4.4-10.8)
[2017-10-06 06:50] LABS: BUN/Creatinine Ratio 13.4; Calcium 7.8 mg/dL (8.5-10.1); Potassium 3.5 mmol/L (3.5-5.1)
[2017-10-06] MEDS ORDERED: POTASSIUM CHL 20 Meq TABLET PO ONE (08:45)
[2017-10-06 09:28] VITALS: BP 103/72
[2017-10-06] MEDS: ENOXAPARIN SOD 40 MG/0.4 ML SYRINGE SC SCH (10:08)
[2017-10-06] MEDS: SERTRALINE HCL 50 MG TAB PO SCH (10:08)
[2017-10-06] MEDS: PANTOPRAZOLE 40 MG/10 ML VIAL IV SCH (10:08)
[2017-10-06] MEDS: SODIUM CHLOR 0.9% PF (SALINE LOCK) 10ML VIAL/SYR IV SCH (10:09)
[2017-10-06] MEDS: ENSURE CLEAR Apple 8oz Carton PO SCH ×2 (10:09→12:00)
[2017-10-06] MEDS: HYDROcodone-ACET 5/325MG TAB PO PRN ×2 (10:32→14:45)
== END 2017-10-06 17:37 | disposition home health service (06) | DRG 853 ==
LOC: EDBD 18:58 → ER 18:58 → OVERFLOW 18:59 → ICU WEST 09-22 08:38 → WEST WING 10-02 16:58 → TELE-WESTW 10-02 17:40
PROVIDERS: ADMIT Nurse Practitioner; ATTEND Internal Medicine
PROC: 0W9J3ZZ Drainage of Pelvic Cavity, Percutaneous Approach (ICD-10-PCS; 2017-09-22)
PROC: 02HV33Z Insertion of Infusion Device into Superior Vena Cava, Percutaneous Approach (ICD-10-PCS; 2017-09-22)
PROC: 0W9G00Z Drainage of Peritoneal Cavity with Drainage Device, Open Approach (ICD-10-PCS; 2017-09-23)
PROC: 5A1955Z Respiratory Ventilation, Greater than 96 Consecutive Hours (ICD-10-PCS; 2017-09-23)
PROC: 0BH17EZ Insertion of Endotracheal Airway into Trachea, Via Natural or Artificial Opening (ICD-10-PCS; 2017-09-23)
PROC: 0DBN0ZZ Excision of Sigmoid Colon, Open Approach (ICD-10-PCS; principal; 2017-09-23 13:50)
PROC: 0D1M0Z4 Bypass Descending Colon to Cutaneous, Open Approach (ICD-10-PCS; 2017-09-23 13:50)
DX: A41.9 Sepsis, unspecified organism (principal); I50.43 Acute on chronic combined systolic (congestive) and diastolic (congestive) heart failure; E43 Unspecified severe protein-calorie malnutrition; J69.0 Pneumonitis due to inhalation of food and vomit; J96.00 Acute respiratory failure, unspecified whether with hypoxia or hypercapnia; G93.41 Metabolic encephalopathy; E87.1 Hypo-osmolality and hyponatremia; K57.20 Diverticulitis of large intestine with perforation and abscess without bleeding; Z68.1 Body mass index [BMI] 19.9 or less, adult; K60.4 Rectal fistula; R65.20 Severe sepsis without septic shock; D63.8 Anemia in other chronic diseases classified elsewhere; E03.9 Hypothyroidism, unspecified; E78.5 Hyperlipidemia, unspecified; E83.39 Other disorders of phosphorus metabolism; E87.6 Hypokalemia; I11.0 Hypertensive heart disease with heart failure; I25.10 Atherosclerotic heart disease of native coronary artery without angina pectoris; M06.9 Rheumatoid arthritis, unspecified; M19.90 Unspecified osteoarthritis, unspecified site; N28.1 Cyst of kidney, acquired; N73.9 Female pelvic inflammatory disease, unspecified; Z79.899 Other long term (current) drug therapy; Z82.3 Family history of stroke; Z82.49 Family history of ischemic heart disease and other diseases of the circulatory system; Z83.3 Family history of diabetes mellitus; Z90.49 Acquired absence of other specified parts of digestive tract
CPT/HCPCS: 10022; 36415; 36569; 36600; 51702; 71045; 72193; 74176; 76604; 76705; 77012; 80048; 80053; 80202; 81001; 82040; 82150; 82805; 82962; 83605; 83690; 83735; 83880; 84100; 84132; 84443; 84478; 84484; 85014; 85018; 85025; 85379; 85610; 85730; 86850; 86900; 86901; 87040; 87077; 87081; 87186; 87205; 93005; 93306; 93970; 94002; 94003; 96361; 96365; 96366; 96375; 96376; 97110; 97116; 97163; 97530; A6257; C1729; C9113; G0378; J0330; J0610; J0696; J1815; J1885; J2001; J2250; J2405; J2543; J2704; J3480; J3490; J7042; J7060; J7131; P9047

== ENCOUNTER 2021-01-13 15:13 | Emergency (ER) | payer MEDICARE, MEDICAID ==
[~2021-01-13] VITALS: Ht 149.9 cm; Wt 96.7 kg
[~2021-01-13 15:13] MED LIST changes: -ADAL20KI SC; +ADAL40KI SC; +ASPI81CH43 PO; +FURO1TAB33 PO; -FURO40TA4 PO; -LEFL20TA PO; +SPIR25TA8 PO; -SPIR25TA89 PO
[2021-01-13] MEDS ORDERED: MORPHINE SULFATE 4 MG/ML SYR/VIAL IV ONE (18:00)
[2021-01-13] MEDS ORDERED: ONDANSETRON HCL 4 MG/2 ML VIAL IV ONE (18:00)
[2021-01-13 19:36] LABS: Basophils # (auto) 0 10 ^3/uL (0-0.2); Basophils % (auto) 0.5 % (0.0-2.0); Eosinophils # (auto) 0 10 ^3/uL (0-0.8); Eosinophils % (auto) 1.8 % (0.0-7.0); Monocytes # (auto) 0.3 10 ^3/uL (0-1.3); Neutrophils # (auto) 1.4 10 ^3/uL (1.6-8.6)
[2021-01-13 19:39] LABS: Hematocrit 29.6 % (36.0-46.0); Hemoglobin 10.2 g/dL (12.2-16.2); Lymphocytes % (auto) 34.9 % (10.0-50.0); Mean Corpuscular Hemoglobin 35.8 pg (28.0-32.0); Mean Corpuscular Hgb Conc. 34.6 g/dL (32.0-36.0); Mean Corpuscular Volume 103.3 fL (80.0-100.0); Monocytes % (auto) 11.6 % (0.0-12.0); Neutrophils % (auto) 51.2 % (37.0-80.0); Nucleated Red Blood Cells % 0.5 %; Red Blood Cells 2.86 10^6/uL (4.0-5.20); Red Cell Distribution Width 15.2 % (11.8-14.3); White Blood Cell 2.7 10^3/uL (4.4-10.8)
[2021-01-13 19:51] LABS: Potassium 3.4 mmol/L (3.5-5.1)
[2021-01-13 20:10] LABS: Albumin 2.9 g/dL (3.4-5.0); BUN/Creatinine Ratio 15.9; Bilirubin, Total 0.3 mg/dL (0.2-1.0); Calcium 7.7 mg/dL (8.5-10.1); Total Protein 6.6 g/dL (6.4-8.2)
[2021-01-13] MEDS ORDERED: MORPHINE SULFATE 4 MG/ML SYR/VIAL IM ONE (21:15)
[2021-01-13 21:17] VITALS: BP 154/107
== END 2021-01-13 21:30 | disposition home or self-care (01) ==
LOC: EDBD 15:13 → ER 15:13
DX: S42.214A Unspecified nondisplaced fracture of surgical neck of right humerus, initial encounter for closed fracture (principal); M06.9 Rheumatoid arthritis, unspecified; E44.0 Moderate protein-calorie malnutrition; I11.0 Hypertensive heart disease with heart failure; I50.9 Heart failure, unspecified; E78.5 Hyperlipidemia, unspecified; Z88.1 Allergy status to other antibiotic agents; Z68.41 Body mass index [BMI] 40.0-44.9, adult; W18.39XA Other fall on same level, initial encounter; Y93.89 Activity, other specified; Y92.89 Other specified places as the place of occurrence of the external cause; Y99.8 Other external cause status
CPT/HCPCS: 29105; 36415; 71045; 73030; 73060; 73620; 80053; 83880; 84484; 85025; 96372; 96374; 96375; 99285; J2270; J2405